=== PATIENT | female | born 1980 | race Caucasian/White ===

== ENCOUNTER 2024-02-07 14:55 | Outpatient (CLI) | payer MEDICAID | END 2024-02-07 14:56 | disposition home or self-care (01) | LOC: BICMAMMO 14:55 | PROVIDERS: ATTEND Nurse Practitioner Family | DX: Z12.31 Encounter for screening mammogram for malignant neoplasm of breast (principal); Z80.3 Family history of malignant neoplasm of breast | CPT/HCPCS: 77067 ==